=== PATIENT | male | born 1940 | race Caucasian/White ===

== ENCOUNTER 2019-04-15 08:58 | Emergency (ER) | payer OTHER ==
[~2019-04-15] VITALS: Ht 175.3 cm; Wt 74.8 kg
[2019-04-15] MEDS ORDERED: SODIUM CHLORIDE 0.9% 1,000 ML IV ONE (09:24)
[2019-04-15] MEDS ORDERED: HYDROcodone-ACET 10/325MG TAB PO ONE (10:00)
[2019-04-15 10:32] LABS: Albumin 2.8 g/dL (3.4-5.0); Anion Gap 9 (5-15); BUN/Creatinine Ratio 26.3; Blood Urea Nitrogen 36 mg/dL (7-18); Calcium 8.3 mg/dL (8.5-10.1); Carbon Dioxide 23 mmol/L (21-32); Chloride 108 mmol/L (98-107); GFR African American 64 mL/min; GFR Non-African American 53 mL/min; Glucose 130 mg/dL (74-106); Potassium 4.4 mmol/L (3.5-5.1); Sodium 140 mmol/L (136-145)
[2019-04-15 10:38] LABS: Hemoglobin 8.4 g/dL (13.5-17.5); Red Cell Distribution Width 18.2 % (11.8-14.3)
[2019-04-15 10:42] LABS: Alanine Aminotransferase 25 U/L (16-61); Alkaline Phosphatase 137 U/L (45-117); Aspartate Aminotransferase 38 U/L (15-37); Bilirubin, Total 0.9 mg/dL (0.2-1.0); Total Protein 7.5 g/dL (6.4-8.2)
[2019-04-15 10:43] LABS: Hematocrit 25.5 % (41.0-53.0); Mean Corpuscular Hgb Conc. 32.8 g/dL (32.0-36.0); Mean Corpuscular Volume 88.3 fL (80.0-100.0); Platelet Count (auto) 167 10^3/uL (140-450); Red Blood Cells 2.89 10^6/uL (4.5-5.90); White Blood Cell 14.3 10^3/uL (4.4-10.8)
[2019-04-15 10:52] LABS: INR 1.3 (0.9-1.15)
[2019-04-15 10:58] LABS: Basophils % (manual) 0 (0.0-2.0); Blast Cells 0; Eosinophils % (manual) 0 (0-7); Metamyelocytes % 0; Myelocytes % 0; Promyelocytes % 0; Reactive Lymphocytes 0
[2019-04-15 11:37] LABS: Band Neutrophils % (manual) 1; Lymphocytes % (manual) 4 (10.0-50.0); Monocytes % (manual) 15 (0-12)
[2019-04-15] MEDS ORDERED: MORPHINE SULFATE 4 MG/ML SYR/VIAL IM ONE (12:30)
[2019-04-15 12:40] VITALS: BP 117/57
== END 2019-04-15 12:59 | disposition short-term general hospital (02) ==
LOC: EDBD 08:58 → ER 09:04
DX: S72.301A Unspecified fracture of shaft of right femur, initial encounter for closed fracture (principal); I95.9 Hypotension, unspecified; E78.00 Pure hypercholesterolemia, unspecified; W01.0XXA Fall on same level from slipping, tripping and stumbling without subsequent striking against object, initial encounter; Y93.89 Activity, other specified; Y92.89 Other specified places as the place of occurrence of the external cause; Y99.8 Other external cause status
CPT/HCPCS: 36415; 71045; 73700; 80053; 84484; 85007; 85027; 85610; 85730; 86850; 86900; 86901; 93005; 96372; 99285; J2270; J7030